=== PATIENT | male | born 1995 | race Caucasian/White ===

== ENCOUNTER 2016-07-01 20:57 | Emergency (ER) | payer BC ==
[2016-07-01 21:21] VITALS: BP 121/62; RESP 16
[2016-07-01] MEDS ORDERED: ACETAMINOPHEN 325 MG TAB PO ONE (21:22)
[2016-07-01] MEDS ORDERED: AZITHROMYCIN 250 MG TAB PO ONE (21:39)
[2016-07-01] MEDS ORDERED: ALBUTEROL INH PREPACK MDI TAKEHOME ONE (22:16)
--- NOTE | 2016-07-01 22:19 | UCPHY ---
H & P Time Seen by Provider: 07/01/16 21:30 Patient Type: New HPI/ROS: This patient complains of fever and cough. Patient describes a cough for 1 week occasionally productive of sputum with a 1 day history of fevers and chills. His fever prior to arrival is 103 and he took ibuprofen approximately an hour prior to arrival. He denies any other associated symptoms except for mild myalgias and nasal congestion. He also has a mild bifrontal headache that improves with ibuprofen. No other exacerbating or alleviating factors. ROS: No significant fatigue. HEENT: No sinus pain. No ear pain. No sore throat. Pulmonary: No pleuritic pain. No hemoptysis. No respiratory distress. Cardiovascular: No lightheadedness or syncope. No calf pain or swelling. GI: He reports diarrhea-45 episodes of loose stool today. He thinks this is from having soup all day. Integumentary: No skin rash. 10 point ROS is otherwise negative Past Medical/Surgical History: Otherwise healthy Social History: [employer] student He denies any use. He is a social drinker. Smoking Status: Current some day smoker Physical Exam: Temperature on arrival 38.2 centigrade. Pulse 102. Other vitals are normal Physical Exam General: No acute distress HEENT: Nose: Clear discharge bilaterally. No sinus tenderness to percussion. Ears: External canals and tympanic membranes are clear with no erythema or abnormal findings bilaterally. Oropharynx: No erythema or exudates. No dysphonia. No drooling or stridor. Eyes: Pupils equal and react to light. Extraocular motions are intact. Neck: Supple with no meningismus. No lymphadenopathy Lungs: Mild expiratory wheeze, rales at the right base, rhonchi bilateral bases. No increased work of breathing or respiratory distress. Normal rate at 16 Cardiac: Regular rate and rhythm with no murmur gallop or rub lower extremity swelling. Skin: No rash or pallor. Neuro: Alert with no focal deficits noted. Differential diagnosis: Influenza, pneumonia, bronchitis Constitutional: Initial Vital Signs Temperature (C) 38.2 C 07/01/16 21:05 Heart Rate 102 H 07/01/16 21:05 Respiratory Rate 16 07/01/16 21:05 Blood Pressure 121/62 H 07/01/16 21:05 O2 Sat (%) 99 07/01/16 21:05 O2 Delivery Mode Room Air Allergies/Adverse Reactions: No Known Allergies Allergy (Verified 07/01/16 21:16) Home Medications: Medication Instructions Recorded Azithromycin [Zithromax] 250 mg PO DAILY #4 tab 07/01/16 Guaifenesin/Codeine Phosphate 5 - 10 ml PO Q6 PRN #120 ml 07/01/16 [Guaifenesin-Codeine Liquid] MDM/Departure - MDM Diagnostics: Imaging Impressions Chest X-Ray 07/01/16 21:39 Impression: Mild bronchitis. No other findings for acute cardiopulmonary abnormality. Chest x-ray: Bronchitis with no focal infiltrates appreciated by my interpretation. Imaging Results: Imaging Impressions Chest X-Ray 07/01/16 21:39 Impression: Mild bronchitis. No other findings for acute cardiopulmonary abnormality. Imaging: Discussed imaging studies w/ scallop cutter machine Radiologist Medications Given: Discontinued Medications Acetaminophen (Tylenol) 975 mg PO EDNOW ONE Stop: 07/01/16 21:23 Last Admin: 07/01/16 21:33 Dose: 975 mg Albuterol Sulfate (Proventil Inh Prepack) 1 mdi TAKEHOME EDNOW ONE Stop: 07/01/16 22:17 Last Admin: 07/01/16 22:35 Dose: 1 mdi Azithromycin (Zithromax) 500 mg PO EDNOW ONE PRN Reason: Protocol Stop: 07/01/16 21:40 Last Admin: 07/01/16 22:00 Dose: 500 mg ED Course/Re-evaluation: Zithromax 500 mg p. o. Tylenol p.o. with further defervesced since Albuterol MDI with spacer dispensed Discussion: Influenza is negative. I counseled the patient regarding acute bronchitis. Explained that given the rales on exam he may have very early bronchopneumonia though no radiographic evidence of this. He appears clinically well, is tolerating good p.o. intake and I think is safe for discharge home without further workup at this time - Depart Disposition: Home, Routine, Self-Care Clinical Impression: Acute bronchitis Qualifiers: Bronchitis organism: unspecified organism Qualified Code(s): J20.9 - Acute bronchitis, unspecified Fever Qualifiers: Fever type: unspecified Qualified Code(s): R50.9 - Fever, unspecified Condition: Good Instructions: Fever in Adults (ED), Acute Bronchitis (ED) Additional Instructions: Diagnoses: 1. Acute bronchitis 2. Fever Plan: Humidifier Albuterol inhaler with spacer for cough, wheeze or shortness of breath-2 puffs per 4 hours as needed Zithromax antibiotic as prescribed Ibuprofen and Tylenol for fevers as needed No school tomorrow. Go to the emergency department if he develops any significant worsening of her symptoms despite the treatment plan. Stand Alone Forms: School Excuse Prescriptions: Azithromycin [Zithromax] 250 mg PO DAILY #4 tab Guaifenesin/Codeine Phosphate [Guaifenesin-Codeine Liquid] 5 - 10 ml PO Q6 PRN # 120 ml PRN Reason: Cough Referrals: NONE *PRIMARY CARE P,. [Primary Care Provider] - As per Instructions - PQRS PQRS Measurement: NA
[2016-07-01 23:00] VITALS: PULSE 95; TEMP 99.5; O2SAT 95
== END 2016-07-01 22:45 | disposition home or self-care (01) ==
LOC: CED 20:57
DX: J20.9 Acute bronchitis, unspecified (principal)
CPT/HCPCS: 71020-PO; 87400-PO; G0463-PO